=== PATIENT | male | born 1945 | race Caucasian/White ===

== ENCOUNTER 2016-10-24 08:32 | Inpatient (IN) ==
[2016-10-24] MEDS ORDERED: Aspirin 81 MG TAB.CHEW PO ONE (08:35)
[2016-10-24 09:16] LABS: Basophils % 0.4 %; Eosinophils # 0.1 K/mcL (0.0-0.6); Eosinophils % 1.1 %; Hematocrit 45.1 % (37.5-50.1); Hemoglobin 15.3 g/dL (12.9-16.9); Immature Granulocytes % 0.3 % (0-4); Lymphocytes # 1.1 K/mcL (0.6-4.6); Lymphocytes % 15.2 %; Mean Corpuscular HGB Conc 33.9 g/dL (31.6-35.5); Mean Corpuscular Hemoglobin 31.9 pg (28.0-33.3); Mean Corpuscular Volume 94.2 fL (83.0-100.0); Mean Platelet Volume 11.2 fL (9.4-12.4); Monocytes # 0.9 K/mcL (0.0-1.3); Monocytes % 12.4 %; Neutrophils # 5.3 K/mcL (1.6-8.9); Platelet Count 190 K/mcL (140-400); Red Blood Count 4.79 M/mcL (4.19-5.50); Red Cell Distribution Width 13.2 % (11.5-14.5); Segmented Neutrophils % 70.6 %
[2016-10-24] MEDS ORDERED: Nitroglycerin 0.4 MG TAB.SUBL SL PRN (09:27)
[2016-10-24 09:49] LABS: Prothrombin Time 10.4 Seconds (9.4-12.1)
[2016-10-24 09:50] LABS: BUN/Creatinine Ratio 18 (6-26); Blood Urea Nitrogen 24 mg/dL (8-26); Calcium 9.4 mg/dL (8.6-10.8); Carbon Dioxide 25 mEq/L (19-29); Chloride 104 mEq/L (98-109); Glucose 132 mg/dL (70-99); Osmolality,Calculated 294 (280-300); Potassium 3.6 mEq/L (3.5-4.5); Sodium 139 mEq/L (136-145); eGFR For African Americans > 60 (> 60); eGFR For Non-African Americans 53 (> 60)
[2016-10-24 09:52] LABS: Activated Partial Thrombo Time 29.4 Seconds (26.0-36.0)
--- NOTE | 2016-10-24 10:10 | Emergency Department Note ---
Disposition Clinical Impression: NSTEMI (non-ST elevated myocardial infarction), Elevated troponin Chest pain Qualifiers: Chest pain type: unspecified Qualified Code(s): R07.9 - Chest pain, unspecified Disposition: Admitted As Inpatient Condition: Good Time of Disposition: 11:38 Chest Pain HPI - General Stated Complaint: Chest Pain Time Seen by Provider: 10/24/16 08:34 Source: patient Mode of arrival: ambulatory Limitations: no limitations Vital Signs Reviewed: Yes Nursing Notes Reviewed: Yes - History of Present Illness HPI Narrative: Patient presents to emergency room with generalized malaise chest discomfort on Saturday left upper extremity discomfort and pain. He is waited 3 days now and symptoms have not gotten better. He was concerned as it was similar to when he had a heart attack in 2005. Patient denies any chest pain this time the shortness of breath fevers chills nausea vomiting or diarrhea. He has generalized malaise. He did have several bouts of nausea vomiting and diarrhea prior to today but has not had any at this point. Denies any trauma or injury Pt complaint: chest pain Onset (ago): day(s) Duration: now resolved Onset: during rest Pain Location: substernal, left chest Severity: mild Severity scale (1-10): 3 Quality: aching Pain Radiation: LUE Improves with: rest Worsens with: nothing Context: recent illness Associated symptoms: Reports: nausea, vomiting Treatments prior to arrival chest pain: aspirin - Related Data Previous Rx's Medication Instructions Recorded HYDROcodone/Acet 5/325 mg [Sarepta 1 tab PO Q6H #15 tablet 05/05/16 5-325 mg] Ibuprofen 800 mg PO Q8H #30 tablet 05/05/16 Allergies Allergy/AdvReac Type Severity Reaction Status Date / Time No Known Allergies Allergy Verified 05/05/16 08:23 All systems ED: reviewed and negative except as stated. Constitutional: Denies: fever, chills Cardiovascular: Reports: chest pain. Denies: palpitations, dyspnea on exertion , orthopnea Respiratory: Denies: dyspnea, wheezes Gastrointestinal: Reports: nausea, vomiting, diarrhea Genitourinary: Denies: dysuria Musculoskeletal: Denies: back pain, neck pain Neurological: Denies: headache Endocrine: Reports: fatigue Chest Pain PMH - Past Medical History Medical history: Reports: hyperlipidemia, hypertension - Social History Smoking Status: Never smoker Alcohol use: Reports: occasionally Drug use: Reports: none Physical Exam - General Limitations: no limitations - Head Head exam: atraumatic, normocephalic, normal inspection - Neck Neck exam: Present: normal inspection, full ROM, trachea midline. Absent: tenderness, meningismus - Chest Chest inspection: Present: normal inspection, symmetric chest wall rise - Respiratory Respiratory exam: Present: normal lung sounds bilaterally - Cardiovascular Cardiovascular exam: Present: regular rate, normal rhythm, normal heart sounds - Abdominal Exam Abdominal exam: Present: soft, Non-Tender, normal bowel sounds. Absent: tenderness, distention, guarding, rebound, rigidity, Cuellar's sign, pulsatile mass, hernia - Extremities Exam Extremities exam: Present: normal inspection, full ROM, normal capillary refill. Absent: tenderness, pedal edema - Back Exam Back exam: Present: normal inspection - Neurological Exam Neurological exam: Present: alert, oriented X3, CN II-XII intact, normal gait - Skin Skin exam: Present: warm, dry, intact, normal color Course Course Narrative: Patient seen and examined the time arrival. See history of present illness. 71 -year-old male presents with 3 days worth of generalized malaise nausea vomiting diarrhea. Patient did describe severe chest pain on Saturday that he thought was going to kill him. He did not come into the emergency room because he could not get to his own. Patient waited at home without any intervention. Currently denying chest pain main complaint is malaise intermittent nausea vomiting and slight dizziness. Physical exam is benign on presentation. He is chest pain-free. EKG collected shows poor amplitude progression in the limb leads but otherwise no acute signs of ST segment elevation. Is compared to previous EKG appears to be stable. Patient will be treated with ACS and possible dehydration secondary to viral syndrome. Evaluation to be completed aspirin chest x-ray and troponins. At this time. Patient otherwise is resting in the bed and does not require any other acute intervention at this point. Disposition pending this workup and treatment course. Patient will most likely require admission considering he had a previous catheterization in 2005 that was identical to his chest pain symptoms on Saturday. Patient again is chest pain -free at this time and no other acute physical exam findings - Reevaluation(s) Reevaluation #1: Patient has elevated troponin at 10.2. Heparin drip for this time. Consultation placed out to the on-call diecast machine operator Dr. vee. The presentation symptoms medical history she said the patient would most likely need admission and catheterization within the state. Patient then had an onset of chest discomfort again. Repeat EKG was collected showing similar morphology with no acute signs of ST segment elevation or myocardial infarction. Patient was given a nitroglycerin trial and the symptoms resolved completely after one nitroglycerin. Patient is otherwise stable resting comfortably in the bed appears to be in STEMI and what is an old infarct with residual elevated troponin at this time. Patient will be admitted to hospitals for definitive management. Dr. kemp and myself reviewed the patient's presentation symptoms intervention as well as the consultation cardiology. No other issues or recommendations at this time. Patient is going to be admitted to the floor for definitive management. Heparin drip started patient on his Combivent plan patient has been hemodynamically stable while here in the ED. Time: 11:35 Chest Pain - MDM Narrative Medical decision making narrative: nSTEMI, elevated troponin, generalized malaise - Medical Records Medical records reviewed: Yes I reviewed the patient's medical records. - Lab Data Lab results reviewed: Yes I reviewed the patient's lab results. - Radiology Data Radiology results reviewed: Yes I reviewed the patient's radiology results. Chest x-ray stable with no acute signs or wide mediastinum - EKG Data EKG attestation: Yes I reviewed and interpreted this EKG. EKG shows normal: sinus rhythm, axis, intervals, QRS complexes, ST-T waves Rate: normal Rhythm: NSR [place]/QRS: normal Voltage: decreased voltage throughout When compared to previous EKG there are: no significant changes Interpretation: no acute changes, unchanged when compared to prior tracing (date ) Heart Score - Score History: Moderately Suspicious EKG: Non Specific repolarisation Disturbance Age: 45-65 Risk Factors: 1-2 risk factors Troponin: Greater than 3x normal limit HEART Score Total: 6 Critical Care Time Critical Care Time: Yes Total Critical Care Time: 35 Attestation: Dependent and medical management intervention and consultation
[2016-10-24] MEDS ORDERED: *HR* Heparin 5,000 UNIT/ML VIAL IVP PRN ×2 (10:13)
[2016-10-24] MEDS ORDERED: *HR* Heparin 5,000 UNIT/ML VIAL IVP ONE (10:13)
[2016-10-24] MEDS ORDERED: Heparin 25,000 UNIT/500 ML D5W 25,000 UNIT/500 ML MLS IVC SCH (10:15)
[2016-10-24] MEDS ORDERED: Ondansetron 4 MG/2 ML VIAL IVP PRN (11:08)
[2016-10-24] MEDS ORDERED: Acetaminophen 325 MG TABLET PO PRN (11:08)
[2016-10-24] MEDS ORDERED: *HR* Morphine 2 MG/ML SYRINGE IVP PRN (11:08)
[2016-10-24] MEDS ORDERED: Naloxone 0.4 MG/ML INJ IVP PRN (11:08)
--- NOTE | 2016-10-24 12:07 | Cardiology Consult Note ---
Date of Encounter: 10/24/16 Time of Encounter: 12:04 Assessment and Plan (1) NSTEMI (non-ST elevated myocardial infarction) Current Visit: Yes Status: Acute Troponin 10.32. EKG - SB with no acute ST changes. Old inferior NC. Currently pain free. Trend troponin. Check TTE. I discussed [facility] indications, risk, benefits, and alternatives. He agrees to proceed. Continue heparin gtt. Asa, statin, bb. Creatinine 1.33, appears to be near baseline. H/o CKD. Continue to monitor. (2) CAD (coronary artery disease) Current Visit: Yes Status: Acute H/o NC and PCI in 2005. Reports recently stopping plavix. Continue asa, statin, and bb. Qualifiers: Coronary Disease-Associated Artery/Lesion type: [place] artery [place] vs. transplanted heart: [place] heart Associated angina: without angina Qualified Code(s): I25.10 - Atherosclerotic heart disease of [place] coronary artery without angina pectoris Discussion w patient/family: The assessment and plan as outlined above was discussed with the patient and/or family members who expressed understanding and agreement. All questions were answered. Thank you for involving us in the care of your patient. Please call with any questions. History of Present Illness Consult date: 10/24/16 Requesting physician: Tyrone Whyte Consult reason: NSTEMI Chief complaint: Chest pain History of present illness: Mr. Gooden is a 71 year old male with a history of NC with PCI in 2005, HTN, HLD who presented with the c/o chest pain and left arm pain last Saturday. He reports developing left forearm pain starting Saturday morning followed by midsternal pain radiating to his neck. His pain subsided that night. He states his pain was not like his previous NC. Since Saturday he c/o dizziness and fatigue with minimal activity. He presented to the ED and was found to have troponin 10.32. EKG showed no acute ST changes, SB, HR 58 BPM, old inferior NC with posterior extension. Cardiology consulted for NSTEMI. Past Med Surg Social Fam HX - Past Medical History Medical history: hyperlipidemia, hypertension Psychiatric history: no psych history - Social History Smoking Status: Never smoker Alcohol use: occasionally Drug use: none Medications and Allergies Amlodipine Besylate 2.5 mg PO DAILY 10/24/16 [History] Aspirin [Lo-Dose Aspirin EC] 162 mg PO DAILY 10/24/16 [History] Atorvastatin Calcium [Lipitor] 20 mg PO DAILY 10/24/16 [History] Cyanocobalamin (Vitamin B-12) [Vitamin B12] 1,000 mcg PO DAILY 10/24/16 [History ] Ergocalciferol (VITAMIN D2) [Vitamin D] 400 unit PO DAILY 10/24/16 [History] Multivitamin [Multi-Day Vitamins] 1 tab PO DAILY 10/24/16 [History] Omeprazole [PriLOSEC] 20 mg PO DAILY 10/24/16 [History] Oxycodone HCl [Oxaydo] 5 mg PO BID 10/24/16 [History] Allergies No Known Allergies Allergy (Verified 05/05/16 08:23) All Systems Review: A 10-system review of systems was performed and is negative for pertinent findings except as documented above in the HPI. Physical Examination Vital Signs, Last 4 Hours Temp Pulse Resp BP Pulse Ox 10/24/16 11:47 98.0 F 68 14 145/69 100 General: Conversant, No Apparent Distress HEENT: Atraumatic, Normocephaly, Mucus Membranes Moist Neck: No JVD, Normal carotid pulses Cardiac: Reg Rate and Rhythm, Normal S1 and S2, No Murmur Lungs: Normal Breath Sounds, No Wheeze, Rales, Rhonchi Neuro: Alert and responsive, No focal deficits noted Abdomen: Soft, Non-Tender Skin: No rashes noted on visualized skin Musculoskeletal: No Chest Wall Tenderness Extremities: No Clubbing, No Cyanosis, No Edema, Normal Pulses Results 10/24/16 08:39 10/24/16 08:39 - EKG Interpretation EKG results cardiology: personally reviewed (SB with no acute ST changes.) Consult Discharge Plan - Plan Referrals: NO,PCP [Primary Care Provider] -
--- NOTE | 2016-10-24 12:23 | Internal Med History&Physical ---
<Muro,India J - Last Filed: 10/24/16 12:27> Date of Encounter: 10/24/16 Time of Encounter: 12:16 Assessment and Plan (1) NSTEMI (non-ST elevated myocardial infarction) Current visit: Yes Status: Acute presented with chest and left arm pain that started 3 days prior to admission. Initial troponin 10, EKG without acute ST changes. Denies CP on exam. ASA, nitro and heparin gtt started in the ED. LHC pending. Cardiology following (2) CAD (coronary artery disease) Current visit: Yes Status: Acute s/p PCI 2005. Now with NSTEMI as noted above. Cont home ASA, statin. Heparin gtt started in ER. Cardiology following Qualifiers: Coronary Disease-Associated Artery/Lesion type: [place] artery [place] vs. transplanted heart: [place] heart Associated angina: with unstable angina Qualified Code(s): I25.110 - Atherosclerotic heart disease of [place] coronary artery with unstable angina pectoris (3) Acute kidney injury Current visit: Yes Status: Acute Cr 1.3; baseline normal to 1.2. Likely pre-renal with recent emesis and loose stool prior to admission. IV fluids, monitor repeat CMP (4) Essential (primary) hypertension Current visit: Yes Status: Acute per hx. BP variable but controlled. Cont home BP medications. Monitor BP and titrate PRN (5) Chronic back pain Current visit: Yes Status: Acute per hx. Stable with home pain medication regimen Qualifiers: Back pain location: low back pain Back pain laterality: bilateral Sciatica presence: without sciatica Qualified Code(s): M54.5 - Low back pain; G89.29 - Other chronic pain (6) DVT prophylaxis Current visit: Yes Status: Acute Heparin gtt Internal Medicine - H&P: HPI Chief complaint: chest pain Admitted From: Home Plans for Post Hospital Care: Home History of present illness: Mr. Gooden is a 71 year old male CAD, HTN and chronic pain who presented to [facility] on 10/24/2016 with complaints of chest pain. He was found to have an NSTEMI and was admitted for Cardiac evaluation. Information obtained from chart review and patient report. Patient reports acute onset severe chest and left arm pain 3 days prior to admission. Had associated N/V/D and diaphoresis. Sx's started on Saturday at 0900, he did not seek medical attention at that time. Says sx's eased, let up around 9pm on Saturday so thought he was okay. Says was feeling better but continued to be tired and weak; says he could hardly stand or walk yesterday and today so came to the ER. He has no chest pain, no SOB, says he still feels weak and tired. No further N/V/D since Saturday Past Med Surg Social Fam HX - Past Medical History Medical history: hyperlipidemia, hypertension Psychiatric history: no psych history - Past Surgical History Surgical History: angioplasty/stent - Social History Smoking Status: Never smoker Alcohol use: occasionally Drug use: none - Additional Family History Additional family history: reviewed and noncontributory Internal Medicine - H&P: Meds Amlodipine Besylate 2.5 mg PO DAILY 10/24/16 [History] Aspirin [Lo-Dose Aspirin EC] 162 mg PO DAILY 10/24/16 [History] Atorvastatin Calcium [Lipitor] 20 mg PO DAILY 10/24/16 [History] Cyanocobalamin (Vitamin B-12) [Vitamin B12] 1,000 mcg PO DAILY 10/24/16 [History ] Ergocalciferol (VITAMIN D2) [Vitamin D] 400 unit PO DAILY 10/24/16 [History] Multivitamin [Multi-Day Vitamins] 1 tab PO DAILY 10/24/16 [History] Omeprazole [PriLOSEC] 20 mg PO DAILY 10/24/16 [History] Oxycodone HCl [Oxaydo] 5 mg PO BID 10/24/16 [History] Allergies No Known Allergies Allergy (Verified 05/05/16 08:23) All Systems PM: A 10-system review of systems was performed and is negative for pertinent findings except as documented above in the HPI. - Constitutional Constitutional: lethargy, malaise, weakness, no chills, no fever(s), no night sweats - EENT Eyes: no change in vision, no discharge, no pain, no photophobia Ears: no ear discharge, no ear pain, no tinnitus Nose, mouth and throat: no dysphagia, no nasal discharge, no neck pain, no sore throat - Cardiovascular Cardiovascular ROS IM: no chest pain, no diaphoresis, no dyspnea, no lightheadedness, no palpitations, no syncope - Respiratory Respiratory: no cough, no dyspnea, no wheezing, no excessive phlegm production - Gastrointestinal Gastrointestinal: no abdominal pain, no diarrhea, no hematemesis, no hematochezia, no melena, no nausea, no vomiting - Musculoskeletal Musculoskeletal ROS IM: no numbness, no tingling - Integumentary Integumentary IM: no rash, no unusual bruising - Neurological Neurological ROS: no confusion, no convulsions, no focal weakness, no numbness, no tingling, no tremor(s) - Hematologic/Lymphatic Hematologic/Lymphatic: no easy bruising - Constitutional Vitals: Temp Pulse Resp BP Pulse Ox 98.0 F 68 14 145/69 100 10/24/16 11:47 10/24/16 11:47 10/24/16 11:47 10/24/16 11:47 10/24/16 11:47 General appearance: Present: A&O X 3, no acute distress - Head Head exam: Present: atraumatic, normocephalic - Eye Eye exam: Present: PERRL, conjuntiva pink, sclera anicteric Pupils: Present: PERRL - Neck Neck exam general surgery: Present: supple, trachea midline. Absent: lymphadenopathy - Respiratory Respiratory exam: Present: CTAB. Absent: accessory muscle use, rales, rhonchi, wheezes - Cardiovascular Cardiovascular exam: Present: RRR, +S1, +S2. Absent: diastolic murmur, gallop, rubs, systolic murmur - GI/Abdominal GI/Abdominal exam: Present: normal bowel sounds, soft, no peritoneal signs. Absent: distended, tenderness - Extremities Exam Extremities exam: Present: warm, radial pulses palpable and symetrical. Absent : calf tenderness, cyanotic, pedal edema - Neurological Exam Neurological exam: Present: CN II-XII intact, oriented X3, no focal deficits. Absent: pronater drift, facial droop, speech deficit - Skin Skin exam: Present: dry, intact Internal Med - H&P Results - Labs CBC & Chem 7: 10/24/16 08:39 10/24/16 08:39 <Abdon Miller - Last Filed: 10/24/16 13:49> Date of Encounter: 10/24/16 Internal Medicine - H&P: HPI History of present illness: Mr. Gooden is a 71 year old male All Systems PM: A 10-system review of systems was performed and is negative for pertinent findings except as documented above in the HPI. - Constitutional Vitals: Temp Pulse Resp BP Pulse Ox 98.0 F 68 14 145/69 100 10/24/16 11:47 10/24/16 11:47 10/24/16 11:47 10/24/16 11:47 10/24/16 11:47 Internal Med - H&P Results - Labs CBC & Chem 7: 10/24/16 08:39 10/24/16 08:39 - Attending Attestation I have seen and examined the patient at around 12:30 PM. I discussed with the patient with India Muro NP. I have reviewed the orders and the note. Patient is a 71-year-old male with a history of coronary artery disease, hypertension, chronic back pain and hyperlipidemia. He presents to the ED with complaints of acute onset left-sided chest pain radiating to left arm that started about 2-3 days ago. Symptoms have gradually worsened. He has associated nausea and vomiting. Patient states he was also having generalized weakness and fatigue. Rates the pain about 6 out of 10 and again describes it as chest tightness and sharp at times. No aggravating or alleviating factors. Patient denies shortness of breath denies palpitations as headache or dizziness or abdominal pain. No associated symptoms. On examination patient is awake and alert. Not in distress. Able to provide HISTORY. No family members at bedside. States his chest pain is better at this time after the nitroglycerin. Initial ED evaluation revealed elevated troponin at 10.32. EKG did not show any acute changes. Patient is being admitted for a non-ST elevation NE. Cardiology has been consulted. IV heparin to be continued. The patient will probably need a left heart catheter either later today or tomorrow. Patient has been explained about his condition and care. Understood and agreed. No unanswered questions. CODE STATUS full code. Heart rate 68, pressure 145/69, O2 sat ON ROOM AIR, HEART S1S2+, no MURMURS, LUNGS BILATERAL GOOD ENTRY NO WHEEZE OR CRACKLES. ABDOMEN SOFT NONTENDER NO MASSES OR GUARDING. EXTREMITIES ALL PULSES ARE STRONG WITH NO EDEMA.
--- NOTE | 2016-10-24 15:15 | Electrocardiograph Report ---
[address] [place], [place] [address] Test Date: 2016-10-24 Pat Name: Colton Gooden Department: 105 Room: 2A32 Gender: Research Microbiologist: MSC : 1945 Requested By: Tyrone Whyte Order Number: [id number] Reading MD: Bry Blanchard MD Measurements Intervals [place] Rate: 58 P: 42 CA: 148 QRS: -59 QRSD: 105 T: 0 QT: 396 QTc: 393 Interpretive Statements SINUS BRADYCARDIA LOW QRS VOLTAGE IN EXTREMITY LEADS LEFT ANTERIOR FASCICULAR BLOCK INFERIOR MYOCARDIAL INFARCTION PROBABLY OLD WITH POSTERIOR EXTENSION [PROMIN Electronically Signed On 10-24-2016 15:13:58 EDT by Bry Blanchard MD
--- NOTE | 2016-10-24 15:15 | Electrocardiograph Report ---
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
[2016-10-25 05:00] LABS: INR 1.1; Prothrombin Time 11.5 Seconds (9.4-12.1)
[2016-10-25 05:11] LABS: Alanine Aminotransferase 28 Units/L (0-55); Albumin 3.1 g/dL (3.5-5.0); Alkaline Phosphatase 82 Units/L (38-126); Aspartate Amino Transferase 35 Units/L (5-34); BUN/Creatinine Ratio 16 (6-26); Bilirubin,Total 0.4 mg/dL (0.2-1.2); Blood Urea Nitrogen 19 mg/dL (8-26); Calcium 8.8 mg/dL (8.6-10.8); Carbon Dioxide 24 mEq/L (19-29); Chloride 107 mEq/L (98-109); Glucose 103 mg/dL (70-99); Osmolality,Calculated 293 (280-300); Potassium 3.8 mEq/L (3.5-4.5); Sodium 140 mEq/L (136-145); Total Protein 6.1 g/dL (6.0-8.3); eGFR For African Americans > 60 (> 60); eGFR For Non-African Americans > 60 (> 60)
[2016-10-25 06:41] LABS: Basophils % 0.5 %; Eosinophils # 0.2 K/mcL (0.0-0.6); Eosinophils % 2.9 %; Hematocrit 37.7 % (37.5-50.1); Hemoglobin 12.9 g/dL (12.9-16.9); Immature Granulocytes % 0.4 % (0-4); Immature Platelets 6.4 % (1.1-6.1); Lymphocytes # 1.3 K/mcL (0.6-4.6); Lymphocytes % 23.4 %; Mean Corpuscular HGB Conc 34.2 g/dL (31.6-35.5); Mean Corpuscular Hemoglobin 31.8 pg (28.0-33.3); Mean Corpuscular Volume 92.9 fL (83.0-100.0); Mean Platelet Volume 11.5 fL (9.4-12.4); Monocytes # 0.6 K/mcL (0.0-1.3); Monocytes % 11.2 %; Platelet Count 147 K/mcL (140-400); Red Blood Count 4.06 M/mcL (4.19-5.50); Red Cell Distribution Width 13.2 % (11.5-14.5); Segmented Neutrophils % 61.6 %
[2016-10-25 06:50] LABS: Neutrophils # 3.5 K/mcL (1.6-8.9)
[2016-10-25] MEDS ORDERED: Verapamil 5 MG/2 ML VIAL ONE (07:36)
[2016-10-25] MEDS ORDERED: 0.9 % Sodium Chloride 1,000 ML ONE ×2 (07:36→07:53)
[2016-10-25] MEDS ORDERED: Heparin 1,000 UNITS/500 mL NS 500 ML ONE (07:37)
[2016-10-25] MEDS ORDERED: Nitroglycerin 1,000 MCG/10 ML VIAL IV ONE ×2 (07:37→09:01)
[2016-10-25] MEDS ORDERED: *HR* Heparin 10,000 UNIT/10 ML VIAL ONE (07:37)
[2016-10-25] MEDS ORDERED: *HR* Midazolam HCl 2 MG/2 ML VIAL ONE (07:52)
[2016-10-25] MEDS ORDERED: *HR* FentaNYL (PF) 100 MCG/2 ML VIAL ONE (07:52)
[2016-10-25 08:14] LABS: Platelet Estimate Normal (Normal)
--- NOTE | 2016-10-25 08:19 | Pre-Sedation Evaluation ---
Pre-sedation evaluation - Pre-sedation checklist Date of procedure: 10/25/16 Procedure: [facility] Recent Vitals: Last Vital Signs Temp 98.3 F 10/25/16 06:56 Pulse 57 10/25/16 06:56 Resp 18 10/25/16 06:56 BP 118/75 10/25/16 06:56 Pulse Ox 96 10/25/16 06:56 H&P (including ROS) documented in medical record: Yes Previous reaction to sedatives/anesthetics: No Dietary Status: NPO after Midnight Dentition: dentures removed ASA Classification *see protocol: CLASS II-Mild systemic disease Plan of Care: Pt appropriate candidate for procedure/moderate/conscious sedation , Risks/benefits of procedure/sedation discussed w/ patient/family
[2016-10-25] MEDS ORDERED: Tirofiban 5 MG/100ML 5 MG/100 ML BAG IV ONE (08:32)
[2016-10-25] MEDS ORDERED: *HR* Ticagrelor 90 MG TABLET ONE (08:49)
[2016-10-25] MEDS ORDERED: Famotidine 20 MG TABLET PO SCH (09:00)
[2016-10-25] MEDS ORDERED: Aspirin Enteric Coated 81 MG Tablet PO SCH ×2 (09:00→09:50)
--- NOTE | 2016-10-25 09:26 | Invasive Diagnostic Lab Proc ---
Name: Colton Gooden Date of Study: 10/25/2016 Date: 1945 Ht: 70.1in Medical Record#: [id number] Age: 71 Wt: 165.35lb Gender: Male BSA: 1.93 Order #: [id number] BMI: 23.67 Physicians Procedure Physician: Bry Blanchard MD, [facility] Referring MD: Referring MD: Staff Name Position Time In Esperanza Orr RN Manual Plate Filler 08:11 AM Felicitas Ugalde RT (R) Monitor 08:11 AM James Gallagher RT (R) Scrub 08:11 AM Cammy Bentley RT (R) Monitor 08:11 AM Paulina Paredes RN Monitor 09:12 AM Indications Indication Non-Stemi Procedures Performed Procedure L HRT ARTERY/VENTRICLE ANGIO PRQ CARD ADELITA STENT W/ANGIO 1 VSL IVUS CORONARY 1ST VESSEL S\\T\\I IVUS CORONARY EA AD'L VES S\\T\\I Pre-Procedure Checklist Informed consent is complete signed and on chart. H\\T\\P is on chart. ID band is on and ID verified with patient. Patient NPO for procedure The procedure was described for the patient and questions were answered. Blood Pressure: 135/70 ECG is on chart. Rhythm: NSR Plan of Care Patient will tolerate the procedure without complications. Adequate level of comfort will be maintained. Hemodynamics will remain stable Patient will recover from procedure without complications. Respiratory function will be maintained. Cardiac rhythm will remain stable. Patient temperature will be maintained. Patient and/or family have verbalized understanding of the procedure. Patient Education Chief Complaint/Reason for Test: Cardiac Cath Developmental Category: Geriatric (65+ years) Developmentally Appropriate for Age: Yes Learning Barriers: None Education Needs: Procedure Education Method: Verbal Information Taught: Cardiac Cath Educational Evaluation: Able to repeat information Intravenous Access Time IV Size Location DC'd Fluid/Drip Rate Units RN 08:14 AM 18g 1 1/4" Patent On Arrival Rt Antecubital 0.9NaCl 25 ml/hr Esperanza Orr RN Allergies No Known Allergies Vital Signs Time BP (mmHg) HR (bpm) O2 Sat. RR (bpm) LOC 08:12 AM 135 / 70 62 100 % 18 4 = Oriented but drowsy 08:26 AM 116 / 71 71 99 % 19 08:29 AM 119 / 69 64 99 % 19 08:32 AM 133 / 76 61 100 % 24 08:35 AM 131 / 79 62 100 % 18 08:38 AM 128 / 76 61 100 % 17 08:41 AM 139 / 78 62 100 % 13 08:44 AM 141 / 75 62 100 % 16 08:47 AM 144 / 82 62 100 % 16 08:50 AM 129 / 77 59 100 % 20 08:54 AM 125 / 73 63 100 % 26 08:09 AM 147 / 76 57 100 % 08:11 AM 135 / 70 78 100 % 12 08:14 AM 124 / 70 60 100 % 20 08:17 AM 116 / 69 65 100 % 34 08:20 AM 123 / 73 54 100 % 16 08:23 AM 105 / 60 69 100 % 12 08:56 AM 112 / 70 68 100 % 20 08:59 AM 116 / 73 65 100 % 15 09:02 AM 113 / 68 66 100 % 16 09:05 AM 119 / 72 62 100 % 17 09:08 AM 117 / 74 62 100 % 20 Procedural Medications Time Medication Dose Units Method Given By 08:11 AM Oxygen 2 L/min nasal cannula Esperanza Orr RN 08:11 AM Versed 2 mg Intravenous Esperanza Orr RN 08:11 AM Fentanyl 50 mcg Intravenous Esperanza Orr RN 08:22 AM Lidocaine 2% 0.5 ml Subcutaneous Bry Blanchard MD, FACC 08:23 AM Nitroglycerin 200 mcg Verapamil 2.5 mg Intraarterial Bry Blanchard MD, FACC 08:33 AM Aggrastat Bolus: 37.5 ml Intravenous Esperanza Orr RN 08:33 AM Aggrastat 5mg/100ml 6.5 ml Intravenous Esperanza Orr RN 08:35 AM Heparin 3000 units Intravenous Esperanza Orr RN 08:49 AM Brilinta 180 mg Orally Esperanza Orr RN 08:53 AM Nitroglycerin 200 mcg Intracoronary Bry Blanchard MD 09:00 AM Nitroglycerin 200 mcg Intracoronary Bry Blanchard MD ASA Classification: CLASS II- Mild systemic disease (i.e. well-controlled diabetes, hypertension, asthma, cigarette smoking) Fredi Score Preprocedure Postprocedure Activity 2- Moves 4 extremities sustained head lift Activity 2- Moves 4 extremities sustained head lift Circulation 2- SBP +/= 20 points of pre-anesthetic level Circulation 2- SBP +/= 20 points of pre-anesthetic level Consciousness 2- Awake and alert oriented x 3 Consciousness 2- Awake and alert oriented x 3 O2 Saturation 2- Able to maintain O2 satruation of 92% on room air O2 Saturation 2- Able to maintain O2 satruation of 92% on room air Respiratory 2- Able to deep breathe and cough well Respiratory 2- Able to deep breathe and cough well Total Score 10 Total Score 10 Contrast Agent: Isovue Diagnostic Contrast: 169 ml Total Contrast: 169 ml Fluoro Dose: 903 mGy Activated Clotting Time Time Seconds to Clot 08:34 AM 131 Procedure Log Time Note Enter By 08:06 AM Pt arrived to label drier 2 at 08:06 tsites 08:06 AM Physician arrived 08:06 [email or web address] 08:06 AM Meet and greet completed tsites 08:06 AM Sign in performed according to hospital policy. tsites 08:06 AM Procedure start 08:06 tsites 08:06 AM CathStat 08:08 AM Vitals capture started with the following parameters, Patient=Adult, Interval=3 min, Initial Ywbcsdtr=788 mmHg, Deflation Rate=5 mmHg, Cuff placed on Right Arm 08:09 AM HR=57 bpm, BHGA=102/76 mmhg, KnA6=036.0 %, Comment=SB 08:10 AM Recorded ECG: HR=55 Condition=Condition 1 08:11 AM Esperanza Orr RN Position: Manual Plate Filler Time in: 08:11 [email or web address] 08:11 AM Felicitas Ugalde RT (R) Position: Monitor Time in: 08:11 tsites 08:11 AM James Gallagher RT (R) Position: Scrub Time in: 08:11 tsites 08:11 AM Cammy Bentley RT (R) Position: Monitor Time in: 08:11 [facility] 08:11 AM Patient charges- Angio tray pack, Navilyst 3mm J, Pulse Oximetry and ACIST tubing and transducer [email or web address] 08:11 AM Time: 08:11 Oxygen on at 2 L/min per nasal cannula by Esperanza Orr RN [facility] 08:11 AM Time: 08:11 Versed 2 mg Intravenous Given by Esperanza Orr RN [email or web address] 08:11 AM HR=78 bpm, CDPC=299/70 mmhg, WhJ2=206.0 %, Resp=12 B/min, Comment=SR 08:12 AM Time: 08:11 Fentanyl 50 mcg Intravenous Given by Esperanza Orr RN [facility] 08:12 AM Time: 08:12 Patient comfortable and pain free: Yes tsites 08:12 AM Time: 08:12LOC: 4 = Oriented but drowsy tsites 08:14 AM HR=60 bpm, BAOE=318/70 mmhg, JwD8=713.0 %, Resp=20 B/min, Comment=SR 08:17 AM HR=65 bpm, TRFX=073/69 mmhg, NrF3=091.0 %, Resp=34 B/min, Comment=SR 08:18 AM Pressure channel 1 zero failed. 08:18 AM Pressure channel 1 zeroed. 08:18 AM Pressure channel 1 zeroed. 08:20 AM HR=54 bpm, LNMZ=704/73 mmhg, SeJ6=645.0 %, Resp=16 B/min, Comment=SR 08:22 AM Time out performed according to hospital policy [email or web address] 08:22 AM Time: 08:22 0.5 ml Lidocaine 2% to right radial Subcutaneous Given by Bry Blanchard MD, [facility] [email or web address] 08:22 AM Access obtained by percutaneous puncture. 6Fr 10cm Terumo Glidesheath sheath placed in right Radial artery. [id number] [email or web address] 08:23 AM Time: 08:23 Patient given , 200 mcg Nitroglycerin, and 2.5 mg Verapamil Intraarterial by Bry Blanchard MD, [facility] [email or web address] 08:23 AM 0.035 260cm Navilyst 3mmJ wire [id number] [email or web address] 08:23 AM HR=69 bpm, TGBD=139/60 mmhg, OcV9=076.0 %, Resp=12 B/min, Comment=SR 08:23 AM 5Fr TIG catheter inserted over the wire [facility] [email or web address] 08:24 AM Catheter selectively placed in left ventricle [email or web address] 08:24 AM Pressure channel 1 zeroed. 08:25 AM Bolus angiogram of left Ventricle complete: 10 ml/sec for a total of 30 mls [email or web address] 08:25 AM Recorded Pressure: LV, HR=75, Condition=Condition 1 (Left Ventricle) LV 90/1/5 08:25 AM Recorded Pressure: LV, Ao, HR=88, Condition=Condition 1 (Left Ventricle) LV 71/6/14, (Aorta) Ao 89/59/71 08:26 AM RCA angiography performed in multiple views. [email or web address] 08:26 AM Recorded Pressure: Ao, HR=76, Condition=Condition 1 (Aorta) Ao 96/79/87 08:26 AM HR=71 bpm, WOWN=500/71 mmhg, SpO2=99.0 %, Resp=19 B/min, Comment=SR 08:27 AM Catheter removed [email or web address] 08:27 AM 5Fr FL 3.5 catheter inserted over the wire [id number] [email or web address] 08:28 AM LCA angiography performed in multiple views. [email or web address] 08:29 AM Recorded Pressure: Ao, HR=60, Condition=Condition 1 (Aorta) Ao 108/76/91 08:29 AM HR=64 bpm, DGNP=805/69 mmhg, SpO2=99.0 %, Resp=19 B/min, Comment=SR 08:30 AM Coronary Dominance: Left [email or web address] 08:30 AM Lesion found in Proximal LAD. Pre Stenosis: 70 Pre TOLU Flow: 3: Complete and Brisk Flow/Perfusion [email or web address] 08:30 AM Lesion found in Mid LAD. Pre Stenosis: 50 Pre TOLU Flow: [email or web address] 08:31 AM 6Fr RBL 3.5 Convey guide catheter was used to cannulate the PCI vessel successfully. reused? No [email or web address] 08:31 AM .014 [place] 190cm guide wire across target lesion- successful. reused? No [email or web address] 08:31 AM Inflation device was opened. [email or web address] 08:32 AM HR=61 bpm, LUGC=285/76 mmhg, UvZ5=010.0 %, Resp=24 B/min, Comment=SR 08:33 AM Time: 08:33 Aggrastat Bolus: 37.5 ml Intravenous Given by Esperanza Orr RN Sprague pump [email or web address] 08:33 AM Time: 08:33 Aggrastat 5mg/100ml 6.5 ml Intravenous Given by Esperanza Orr RN Sprague pump [email or web address] 08:33 AM Recorded Pressure: Ao, HR=65, Condition=Condition 1 (Aorta) Ao 130/81/102 08:34 AM At 08:34 the ACT was 131 seconds. [email or web address] 08:35 AM Time: 08:35 Heparin 3000 units Intravenous Given by Esperanza Orr RN [email or web address] 08:35 AM HR=62 bpm, UUWV=844/79 mmhg, JpI2=750.0 %, Resp=18 B/min, Comment=SR 08:36 AM .014 [place] 190cm guide wire across target lesion- successful. reused? No [email or web address] 08:38 AM 3.5mm x 20mm Synergy drug-eluting stent across target lesion- successful Lot #[id number] [email or web address] 08:38 AM HR=61 bpm, NTTQ=966/76 mmhg, FzH7=145.0 %, Resp=17 B/min, Comment=SR 08:41 AM HR=62 bpm, WIFC=085/78 mmhg, RpU2=202.0 %, Resp=13 B/min, Comment=SR 08:43 AM Stent deployed @ 12 richar for 29 seconds [email or web address] 08:43 AM Stent delivery system removed intact. [email or web address] 08:44 AM HR=62 bpm, DNPJ=873/75 mmhg, VwA3=448.0 %, Resp=16 B/min, Comment=SR 08:45 AM 3.5 mm x 15mm NC Trek Rx balloon across target lesion- successful. reused? No [email or web address] 08:46 AM Balloon inflated @ 12 richar for 8 seconds [email or web address] 08:47 AM Balloon inflated @ 20 richar for 34 seconds [email or web address] 08:47 AM HR=62 bpm, PCKD=605/82 mmhg, MtH2=003.0 %, Resp=16 B/min, Comment=SR 08:48 AM Balloon catheter removed intact. [email or web address] 08:48 AM 3.75 mm x 12mm NC Trek Rx balloon across target lesion- successful. reused? No [email or web address] 08:49 AM Time: 08:49 Brilinta 180 mg Orally Given by Esperanza Orr RN [email or web address] 08:50 AM Recorded Pressure: Ao, HR=62, Condition=Condition 1 (Aorta) Ao 126/74/97 08:50 AM Balloon inflated @ 12 richar for 14 seconds [email or web address] 08:50 AM HR=59 bpm, DOAJ=167/77 mmhg, VxY5=127.0 %, Resp=20 B/min, Comment=SR 08:51 AM Balloon inflated @ 16 richar for 20 seconds [email or web address] 08:52 AM Balloon inflated @ 18 richar for 26 seconds [email or web address] 08:52 AM Balloon inflated @ 22 richar for 20 seconds [email or web address] 08:54 AM Time: 08:53 Nitroglycerin 200 mcg Intracoronary Given by Bry Blanchard MD [email or web address] 08:54 AM HR=63 bpm, HOIP=609/73 mmhg, LyJ5=428.0 %, Resp=26 B/min, Comment=SR 08:56 AM HR=68 bpm, MBOY=789/70 mmhg, OkU7=529.0 %, Resp=20 B/min, Comment=SR 08:57 AM Balloon catheter removed intact. [email or web address] 08:58 AM 3.6Fr/40mHz [employer] Opti Cross IVUS catheter was inserted into guide catheter and advanced to lesion. IVUS study was done and the catheter was removed. [email or web address] 08:59 AM HR=65 bpm, NDVU=697/73 mmhg, NzV5=992.0 %, Resp=15 B/min, Comment=SR 09:00 AM Time: 09:00 Nitroglycerin 200 mcg Intracoronary Given by Bry Blanchard MD [email or web address] 09:02 AM HR=66 bpm, NBPL=158/68 mmhg, BbP1=725.0 %, Resp=16 B/min, Comment=SR 09:03 AM IVUS catheter removed intact [email or web address] 09:04 AM 3.6Fr/40mHz [employer] Opti Cross IVUS catheter was inserted into guide catheter and advanced to lesion. IVUS study was done and the catheter was removed. [email or web address] 09:05 AM HR=62 bpm, KKRI=986/72 mmhg, JvX1=517.0 %, Resp=17 B/min, Comment=SR 09:06 AM IVUS catheter removed intact [email or web address] 09:08 AM Guide wires removed intact. [email or web address] 09:08 AM Guide catheter removed intact. [email or web address] 09:08 AM HR=62 bpm, BDFQ=351/74 mmhg, NoS1=886.0 %, Resp=20 B/min, Comment=SR 09:09 AM Procedure completed at 09:09 [email or web address] 09:10 AM Sign out completed: Radiation Dose 903.08 mGy Fluoro Time: 11.0 Isovue 370 - 200ml contrast 169 ml given by Bry Blanchard MD, [facility]. Complications: NoneCardiac Rehab Consult needed: YesConfirmed administered medications: Yes [email or web address] 09:10 AM Isovue 370 - 200ml,1 Bottle(s) used. [email or web address] 09:10 AM 11 ml air in Vasc Band. [email or web address] 09:10 AM Arterial sheath pulled, Vasc Band closure device used and was Successful S/N. [email or web address] 09:10 AM Post ECG NSR [email or web address] 09:10 AM Post Blood Pressure 117/74 [email or web address] 09:11 AM 09:10 Post Pulses Rt Radial 1+ [email or web address] 09:11 AM Information taught Cardiac Cath, PCI, IVUS/Flowire, and Vasc Band [email or web address] 09:11 AM Education needs Procedure, Plan of Care, and Disease Process [email or web address] 09:11 AM Learning barriers :None [email or web address] 09:11 AM Education Methods Verbal [email or web address] 09:11 AM Education evaluation Able to repeat information [email or web address] 09:12 AM Paulina Paredes RN Position: Monitor Time in: 09:12 [email or web address] 09:12 AM Site status No bleeding/hematoma - Rt Wrist as reported by James Gallagher RT (R) at 09:12 [email or web address] 09:13 AM Delay to floor No [email or web address] 09:13 AM Family placed in not available. [email or web address] 09:13 AM Complications: None [email or web address] 09:13 AM Fluoro Time: 11 [email or web address] 09:13 AM Isovue 370 - 200ml contrast 169 ml given by Bry Blanchard MD, [facility]. [email or web address] 09:13 AM Radiation Dose 903.08 mGy [email or web address] 09:18 AM Report given to Quinn MARX Pt taken to 2A Room #32. 09:18 [email or web address] 09:18 AM Patient out of room: 09:18 [email or web address] Complications Complication None None Hemodynamics Pressures Site Systolic/A Wave Diastolic/V Wave Mean LV 90 1 5 LV 71 6 14 AO 89 59 71 AO 96 79 87 AO 108 76 91 AO 130 81 102 AO 126 74 97 Post Procedure Information Blood Pressure: 117/74 mmHg Rhythm: NSR Post procedural instructions were given Closure Device Time Device Success/Fail 10/25/2016 9:10:00 AM Mechanical Compression Site Checks Time Location Status Staff Sheath In? Note 09:12 AM Rt Wrist No bleeding/hematoma James Gallagher RT (R) Pulses Time Site Pre-Procedure Post-Procedure Note Bilateral DP \\T\\ PT 2+ 9:10:00 AM Rt Radial 1+ Updated by Felicitas Ugalde, RT(R) on 10/25/2016 9:19:15 AM electronically signed on 10/25/2016 9:19:45 AM with status of Final
[2016-10-25] MEDS ORDERED: Tirofiban 12.5 MG/250ML 12.5 MG/250 ML BAG IVC SCH (09:30)
[2016-10-25] MEDS: Cholecalciferol (D-3) 1,000 UNIT TABLET PO SCH (09:52)
[2016-10-25] MEDS: Cyanocobalamin (B-12) 1,000 MCG TABLET PO SCH (09:52)
[2016-10-25] MEDS: Multivit/Ca/Min/Fe/FA 1 TAB TABLET PO SCH (09:53)
--- NOTE | 2016-10-25 10:34 | Internal Med Progress Note ---
<Wally Fall - Last Filed: 10/25/16 16:22> Date of Encounter: 10/25/16 Time of Encounter: 10:33 - Assessment and plan (1) NSTEMI (non-ST elevated myocardial infarction) Current Visit: Yes Status: Acute Assessment and plan: - Cardiology following, appreciate recommendations - Patient underwent left heart catheterization this morning, with placement of 1 drug-eluting stent - ROSIE performed this afternoon. Results pending -Patient receiving aspirin, atorvastatin, ticagrelor - We will continue to monitor. Patient stable and symptomatic. (2) CAD (coronary artery disease) Current Visit: Yes Status: Acute Assessment and plan: - Patient has known history of coronary artery disease, with a history of MA in 2005 with stent placement - Home medications include aspirin 162 mg, reports recently stopping his Plavix per ED note - resumed atorvastatin, ASA and started ticagrelor. - Cardiology following Qualifiers: Coronary Disease-Associated Artery/Lesion type: [place] artery [place] vs. transplanted heart: [place] heart Associated angina: with unstable angina Qualified Code(s): I25.110 - Atherosclerotic heart disease of [place] coronary artery with unstable angina pectoris (3) Acute kidney injury Current Visit: Yes Status: Acute Assessment and plan: Patient presented with BUN/creatinine of 19/1.17 - Likely secondary to decreased renal perfusion and IV dye from [facility]. - We will monitor (4) Essential (primary) hypertension Current Visit: Yes Status: Acute Assessment and plan: - Continue home verapamil - Controlled at 118/75 (5) DVT prophylaxis Current Visit: Yes Status: Acute Assessment and plan: - Patient started on heparin drip for NSTEMI - Heparin held after [facility] this morning. - Patient on dual antiplatelet therapy - Time Spent With Patient Greater than 35 minutes - Subjective Interval history: Patient was seen and examined at bedside this morning. He has recently returned from left heart catheterization, which he reports that placed one drug- eluting stent. He states he currently feels much better, with no symptoms of chest pain, shortness of breath, diaphoresis, nausea, vomiting. He states he does continue to be fatigued, but it has improved since onset of symptoms this weekend. - Constitutional Vitals: Temp Pulse Resp BP Pulse Ox 98.3 F 57 18 118/75 96 10/25/16 06:56 10/25/16 06:56 10/25/16 06:56 10/25/16 06:56 10/25/16 06:56 General appearance: Present: A&O X 3, no acute distress Exam: Gen.: Vitals noted. No acute distress. AAOx3. Mildly lethargic HEENT: PERR, oropharynx clear with moist mucous membranes, Normocephalic, atraumatic Neck: Supple. No adenopathy. Cardiac: RRR, no murmur, +S1/S2 Pulmonary: CTA bilaterally, no wheezes, rales or rhonchi, equal chest expansion Abdomen: soft, nontender, BS noted, no guarding Back: Nontender throughout. Extremities: no BLE edema, nontender calf, no cyanosis or clubbing Neuro: A&Ox3, moves all extremities, no focal deficits Psych: Appropriate mood and behavior Internal Medicine: Result - Labs CBC & Chem 7: 10/25/16 06:19 10/25/16 04:15 Labs: Short CBC 10/25/16 Range/Units 06:19 WBC 5.6 (4.3-11.1) K/mcL Hgb 12.9 D (12.9-16.9) g/dL Hct 37.7 (37.5-50.1) % Plt Count 147 (140-400) K/mcL Neutrophils # 3.5 (1.6-8.9) K/mcL BMP 10/25/16 04:15 Sodium 140 Potassium 3.8 Chloride 107 Carbon Dioxide 24 BUN 19 Creatinine 1.17 Glucose 103 H Calcium 8.8 Cardiac Enzymes 10/24/16 10/24/16 10/25/16 Range/Units 13:47 21:09 04:15 Troponin I 8.98 H* 9.70 H* 9.38 H* (0-0.03) ng/mL Liver Function 10/25/16 Range/Units 04:15 Total Bilirubin 0.4 (0.2-1.2) mg/dL AST 35 H (5-34) Units/L ALT 28 (0-55) Units/L Alkaline Phosphatase 82 (38-126) Units/L Albumin 3.1 L (3.5-5.0) g/dL - ABG Interpretation ABG results: PT/INR, D-dimer PT 11.5 Seconds (9.4-12.1) 10/25/16 04:15 Consult Discharge Plan - Plan Referrals: NO,PCP [Primary Care Provider] - <Ze Grover - Last Filed: 10/25/16 17:56> Date of Encounter: 10/25/16 - Assessment and plan (1) NSTEMI (non-ST elevated myocardial infarction) Current Visit: Yes Status: Acute (2) CAD (coronary artery disease) Current Visit: Yes Status: Acute Qualifiers: Coronary Disease-Associated Artery/Lesion type: [place] artery [place] vs. transplanted heart: [place] heart Associated angina: with unstable angina Qualified Code(s): I25.110 - Atherosclerotic heart disease of [place] coronary artery with unstable angina pectoris (3) Essential (primary) hypertension Current Visit: Yes Status: Acute (4) Chronic back pain Current Visit: Yes Status: Chronic Qualifiers: Back pain location: low back pain Back pain laterality: bilateral Sciatica presence: without sciatica Qualified Code(s): M54.5 - Low back pain; G89.29 - Other chronic pain (5) Acute kidney injury Current Visit: Yes Status: Acute - Constitutional Vitals: Temp Pulse Resp BP Pulse Ox 97.9 F 56 18 96/45 98 10/25/16 15:48 10/25/16 15:48 10/25/16 15:48 10/25/16 15:48 10/25/16 15:48 Internal Medicine: Result - Labs CBC & Chem 7: 10/25/16 06:19 10/25/16 04:15 Labs: Short CBC 10/25/16 Range/Units 06:19 WBC 5.6 (4.3-11.1) K/mcL Hgb 12.9 D (12.9-16.9) g/dL Hct 37.7 (37.5-50.1) % Plt Count 147 (140-400) K/mcL Neutrophils # 3.5 (1.6-8.9) K/mcL BMP 10/25/16 04:15 Sodium 140 Potassium 3.8 Chloride 107 Carbon Dioxide 24 BUN 19 Creatinine 1.17 Glucose 103 H Calcium 8.8 Cardiac Enzymes 10/24/16 10/25/16 Range/Units 21:09 04:15 Troponin I 9.70 H* 9.38 H* (0-0.03) ng/mL Liver Function 10/25/16 Range/Units 04:15 Total Bilirubin 0.4 (0.2-1.2) mg/dL AST 35 H (5-34) Units/L ALT 28 (0-55) Units/L Alkaline Phosphatase 82 (38-126) Units/L Albumin 3.1 L (3.5-5.0) g/dL - ABG Interpretation ABG results: PT/INR, D-dimer PT 11.5 Seconds (9.4-12.1) 10/25/16 04:15 - Attending Attestation I examined this patient and my medical decision-making was reviewed with the Resident Physician on 10/25/16. I agree with the documented findings, disposition and treatment plan as described except to the extent set forth below. Mr. Gooden is currently admitted for acute NSTEMI. He remains moderate to high risk due to potential for worsening cardiac status. Mr. Gooden is s/p cath and stent placement. Denies issues now. No fever or chills. No GI symptoms Exam Alert. Comfortable Heart reg No wheeze I/P 1. NSTEMI 2. CAD Further diagnoses and plan as above.
[2016-10-25] MEDS: *HR* Ticagrelor 90 MG TABLET PO SCH (21:51)
[2016-10-26 05:09] LABS: Hematocrit 37.1 % (37.5-50.1); Hemoglobin 12.3 g/dL (12.9-16.9); Mean Corpuscular HGB Conc 33.2 g/dL (31.6-35.5); Mean Corpuscular Hemoglobin 30.4 pg (28.0-33.3); Mean Corpuscular Volume 91.6 fL (83.0-100.0); Mean Platelet Volume 10.7 fL (9.4-12.4); Platelet Count 150 K/mcL (140-400); Red Blood Count 4.05 M/mcL (4.19-5.50); Red Cell Distribution Width 13.1 % (11.5-14.5)
[2016-10-26 05:22] LABS: BUN/Creatinine Ratio 14 (6-26); Blood Urea Nitrogen 16 mg/dL (8-26); Calcium 8.9 mg/dL (8.6-10.8); Carbon Dioxide 30 mEq/L (19-29); Chloride 111 mEq/L (98-109); Glucose 101 mg/dL (70-99); Osmolality,Calculated 297 (280-300); Sodium 143 mEq/L (136-145); eGFR For African Americans > 60 (> 60); eGFR For Non-African Americans > 60 (> 60)
--- NOTE | 2016-10-26 06:37 | Invasive Diagnostic Lab ---
Name: Colton Gooden Date of Study: 10/25/2016 Date: 1945 Ht: 178.0 cm /70.1 in Medical Record#: [id number] Age: 71 Wt: 75. kg / 165.35 lb Account/Order#: [id number] Gender: Male BSA: 1.93 Order #: [id number] Fluoro Dose: 903 mGy BMI: 23.67 Procedure Physician: Bry Blanchard MD, [facility] Referring MD: Referring MD: Procedures Performed: LEFT HEART CATH Stent w/ PTCA Single Major Vessel IVUS CORONARY INITIAL VESSEL IVUS CORONARY EA ADD'L VESSEL Indications: Non-Stemi Impressions: There is severe one vessel coronary artery disease. The left ventricle is normal and has normal contractility EF 60% Patient had successful PTCA/Drug-Eluting Stent placement in the proximal LAD. Recommendations: Optimal medical therapy of patient's disease. Aggressive risk factor modification. History/Risk Factors: CP NSTEMI Hypertension Dyslipidemia Previous PCI Procedure Access obtained in the right Radial artery by percutaneous puncture A intravascular ultrasound catheter was fully inserted through the sheath into the distal part of the vessel. Image recording was initiated in LAD and Circumflex and coronary ultrasound images were acquired during slow pullback. Patient had successful PTCA/Drug-Eluting Stent placement in the proximal LAD. Complications: None, None Contrast: Isovue 169ml Closure Device: Mechanical Compression Hemodynamics: Pressures Site Systolic/ A Wave Diastolic/ V Wave End Diastolic/ Mean HR LV 90 1 5 75 LV 71 6 14 91 AO 89 59 71 74 AO 96 79 87 76 AO 108 76 91 60 AO 130 81 102 65 AO 126 74 97 62 LV Ventriculography Ejection Method: LV Gram Ejection Fraction: 60% Wall Motion: ESCOB[place]O Anterobasal Normal Anterolateral Normal Apical: Normal Inferoapical Normal Inferobasal Normal Coronary Dominance: Left Lesion Findings/Interventions * Left Main Coronary Artery The LMCA is angiographically free of disease. * Left Anterior Descending There is a 20 mm long, 70% stenosis in the Proximal LAD. The lesion has a TOLU flow of 3 and has no thrombus present. An intervention was performed on the Proximal LAD with a final stenosis of 0%. There were no lesion complications. The final TOLU flow was 3. There is a 40% stenosis in the Mid LAD. IVUS of the proximal LAD stent shows good apposition to vessel wall and stent terminates at the ostium. * Circumflex There is a 40-50% stenosis in the ostial-Proximal Circumflex. There is no significant disease in the left PDA. LAD stent terminates at LAD ostium. * Right Coronary Artery - nondominant There is a 60-70% stenosis in the ostial-Proximal RCA. Interventional Device(s) Vessel Segment Type Name Diameter (mm) Length (mm) Proximal LAD Drug Eluting Stent Synergy 3.5 20 Proximal LAD Balloon NC Trek Rx 3.5 15 Proximal LAD Balloon NC Trek Rx 3.75 12 Updated by RT Ulises(R) on 10/25/2016 9:18:39 AM Bry Blanchard MD, FACC electronically signed on 10/26/2016 6:32:53 AM with status of Final
[2016-10-26] MEDS: Cyanocobalamin (B-12) 1,000 MCG TABLET PO SCH (07:49)
[2016-10-26] MEDS: Multivit/Ca/Min/Fe/FA 1 TAB TABLET PO SCH (07:49)
[2016-10-26] MEDS: Cholecalciferol (D-3) 1,000 UNIT TABLET PO SCH (07:50)
[2016-10-26] MEDS: *HR* Ticagrelor 90 MG TABLET PO SCH (07:50)
--- NOTE | 2016-10-26 08:59 | Discharge Summary ---
<Wally Fall - Last Filed: 10/26/16 14:17> Date of Encounter: 10/26/16 Time of Encounter: 08:55 - Discharge Diagnosis (1) NSTEMI (non-ST elevated myocardial infarction) Priority: Primary Status: Acute (2) CAD (coronary artery disease) Priority: Secondary Status: Acute Qualifiers: Coronary Disease-Associated Artery/Lesion type: [place] artery [place] vs. transplanted heart: [place] heart Associated angina: with unstable angina Qualified Code(s): I25.110 - Atherosclerotic heart disease of [place] coronary artery with unstable angina pectoris (3) Acute kidney injury Priority: Primary Status: Acute (4) Essential (primary) hypertension Priority: Secondary Status: Acute (5) DVT prophylaxis Priority: Primary Status: Acute - Discharge Medications Prescriptions: Atorvastatin Calcium [Lipitor] 40 mg PO DAILY #30 tablet Ticagrelor [Brilinta] 90 mg PO BID #60 tablet Home Medications: Amlodipine Besylate 2.5 mg PO DAILY 10/24/16 [History] Aspirin [Lo-Dose Aspirin EC] 162 mg PO DAILY 10/24/16 [History] Cyanocobalamin (Vitamin B-12) [Vitamin B12] 1,000 mcg PO DAILY 10/24/16 [History ] Ergocalciferol (VITAMIN D2) [Vitamin D] 400 unit PO DAILY 10/24/16 [History] Multivitamin [Multi-Day Vitamins] 1 tab PO DAILY 10/24/16 [History] Omeprazole [PriLOSEC] 20 mg PO DAILY 10/24/16 [History] Oxycodone HCl [Oxaydo] 5 mg PO BID 10/24/16 [History] Atorvastatin Calcium [Lipitor] 40 mg PO DAILY #30 tablet 10/26/16 [Rx] Ticagrelor [Brilinta] 90 mg PO BID #60 tablet 10/26/16 [Rx] Allergies/Adverse Reactions: Allergies No Known Allergies Allergy (Verified 05/05/16 08:23) Date of admission: 10/24/16 13:03 Primary care physician: PCP NO Consults: 10/25/16 07:57 Consult to Cardiac Rehabilitation-Phase1 [CONS] Routine Comment: Reason for Consult: NSTEMI Call Completed: Yes Discharging clinician: Wally Fall Anticipated date of discharge: 10/26/16 - Patient Status Disposition: Home, Self-Care Condition: Good Functional capacity at discharge: independent ambulation Overall status at discharge: patient is back to baseline - Discharge Instructions Instructions: Myocardial Infarction (DC), Chest Pain (DC) Follow Up With: NO,PCP [Primary Care Provider] - Forms: ED Satisfaction Letter - Diet and Activity Activity: increase activity as tolerated, resume usual activities as tolerated Diet: low fat, low cholesterol Hospital course: Mr. Gooden is a 71 year old male who presented to RN and see on 10/24/16 with complaints of chest pain 3 days. He states the pain is crushing in nature, with radiation to his left arm. Patient states that he was also feeling nausea , increased sweating, weakness; however he did not present to the hospital sooner E Nawaf is he thoughts the pain was getting better. On day of admission , he states the pain was worse than before, and was not getting better. He does have a history of coronary artery disease with stent placement in 2005. He takes a daily aspirin, and is supposed to take clopidogrel however he states that he has not been taking his cholesterol for the past several days. He denies any symptoms of shortness of breath, dyspnea, dizziness, association with meals. Patient was evaluated in the emergency department. Vital signs were stable upon presentation, lab results were significant for troponin of 10.32, and an elevated creatinine of 1.3. EKG revealed no ST elevation, normal sinus rhythm. Chest x-ray showed no acute pathology. He was given aspirin, heparin drip, sublingual nitroglycerin with relief of symptoms, and cardiology was consult. Heart score 6. TOLU score 3. Patient was admitted to medicine service for management of NSTMI and AK I. Patient's symptoms improved and he underwent left heart catheterization with placement of 1 drug-eluting stent to the LAD. He also received an transesophageal echocardiogram which showed an ejection fraction of 60% with no significant valvular dysfunction, normal wall motion. Patient was sent home on dual antiplatelet therapy of aspirin and brilinta duration of one year. Patient was instructed to continue his statin at an increased dose of atorvastatin 40 mg daily. A julito was held at this time due to bradycardia in the emergency department, patient was instructed to follow up with cardiology outpatient to determine if the addition is appropriate. Patient remained medically stable throughout admission. His acute kidney injury resolved the next day. Patient is medically stable for discharge, he was instructed to follow-up with primary care physician and employee relations advisor. Significant discussion for general cardiac risk factors including diet, exercise. - Time Spent with Patient Total time spent providing and/or coordinating discharge services: - Constitutional Vitals: Temp Pulse Resp BP Pulse Ox 98.3 F 60 18 118/70 99 10/26/16 08:00 10/26/16 08:00 10/26/16 08:00 10/26/16 08:00 10/26/16 08:00 General appearance: Present: A&O X 3, no acute distress Exam: Gen.: Vitals noted. No acute distress. AAOx3 HEENT: PERRL/EOMI, oropharynx clear, Normocephalic, atraumatic Neck: Supple. No adenopathy. Cardiac: RRR, no murmur, +S1/S2 Pulmonary: CTA bilaterally, no wheezes, rales or rhonchi, equal chest expansion Abdomen: soft, nontender, BS noted, no guarding Back: Nontender throughout. MSK: ROM intact, no joint swelling noted Extremities: no BLE edema, nontender calf, no cyanosis or clubbing Neuro: A&Ox3, moves all extremities, no focal deficits Psych: Appropriate mood and behavior <Ze Grover - Last Filed: 10/26/16 15:33> Date of Encounter: 10/26/16 - Discharge Diagnosis (1) NSTEMI (non-ST elevated myocardial infarction) Priority: Primary Status: Acute (2) CAD (coronary artery disease) Priority: Secondary Status: Acute Qualifiers: Coronary Disease-Associated Artery/Lesion type: [place] artery [place] vs. transplanted heart: [place] heart Associated angina: with unstable angina Qualified Code(s): I25.110 - Atherosclerotic heart disease of [place] coronary artery with unstable angina pectoris (3) Essential (primary) hypertension Status: Acute (4) Chronic back pain Priority: Secondary Status: Chronic Qualifiers: Back pain location: low back pain Back pain laterality: bilateral Sciatica presence: without sciatica Qualified Code(s): M54.5 - Low back pain; G89.29 - Other chronic pain (5) Acute kidney injury Status: Acute Date of admission: 10/24/16 13:03 Primary care physician: PCP NO Consults: 10/25/16 07:57 Consult to Cardiac Rehabilitation-Phase1 [CONS] Routine Comment: Reason for Consult: NSTEMI Call Completed: Yes Hospital course: Mr. Gooden is a 71 year old male - Time Spent with Patient Total time spent providing and/or coordinating discharge services: - Constitutional Vitals: Temp Pulse Resp BP Pulse Ox 98.5 F 68 18 108/76 98 10/26/16 10:39 10/26/16 10:39 10/26/16 10:39 10/26/16 10:39 10/26/16 10:39 - Attending Attestation I examined this patient and my medical decision-making was reviewed with the Resident Physician on 10/26/16. I agree with the documented findings, disposition and treatment plan as described except to the extent set forth below. Mr. Gooden feels OK today. No new issues overnight. No CP. Ready for d/c home. Vitals stable at this time Exam Alert. Comfortable Heart reg No wheeze Plan D/C home today Follow up as outpatient.
--- NOTE | 2016-10-26 09:07 | Cardiology Progress Note ---
Date of Encounter: 10/26/16 Time of Encounter: 08:30 Assessment and Plan (1) NSTEMI (non-ST elevated myocardial infarction) Current Visit: Yes Status: Acute NSTEMI--cardiac rehab consulted. LHC: s/p successful PTCA/ADELITA to ostial LAD; otherwise mild-moderate non- obstructive CAD. TTE: LVEF 60%, no significant valvular dysfunction, normal wall motion, mild LVDD. Uninterrupted DAPT (asa + brilinta) for at least 1 year--pt verbalized understanding. Savings card provided. Continue statin at increased dose. Betablocker held d/t bradycardia, HR mid 50's --consider addition as outpatient if able. Post PCI discharge instructions discussed including site care and medical therapy; pt. verbalizes understanding. All questions and concerns were addressed. Cardiology will sign-off, plan communicated with primary team. Will coordinate outpt appt. Discussion w patient/family: The assessment and plan as outlined above was discussed with the patient and/or family members who expressed understanding and agreement. All questions were answered. Thank you for involving us in the care of your patient. Please call with any questions. The patient was discussed and reviewed with Dr. Nolasco; Cardiology will sign-off , will coordinate outpt appt. Subjective Principal diagnosis: NSTEMI Interval history: Seen and examined. No complaints today upon exam. Denies recurrent chest pain or discomfort--has been up and ambulating in room without symptoms. Right radial cath site stable. Objective Vital Signs, Last 4 Hours Temp Pulse Resp BP Pulse Ox 10/26/16 08:00 98.3 F 60 18 118/70 99 10/26/16 05:10 97.8 F 61 15 136/80 95 General: Conversant, No Apparent Distress HEENT: Atraumatic, Normocephaly, Mucus Membranes Moist Cardiac: Reg Rate and Rhythm, Normal S1 and S2 Lungs: Normal Breath Sounds Neuro: Alert and responsive Abdomen: Soft Skin: No rashes noted on visualized skin Musculoskeletal: No Chest Wall Tenderness Extremities: No Edema, Normal Pulses Other: right radial: dressing clean, dry and intact. no oozing, hematoma or ecchymosis. Brisk cap refill, +2 radial pulses bilaterally. Results 10/26/16 04:51 10/26/16 04:51 Lab Results 10/25/16 10/26/1610/26/17 12:23 04:51 04:51 WBC 5.8 Hgb 12.3 L Hct 37.1 L Plt Count 150 APTT 29.9 D Sodium 143 Potassium 4.0 Chloride 111 H Carbon Dioxide 30 H BUN 16 Creatinine 1.17 Glucose 101 H Calcium 8.9 Active Medications Acetaminophen (Tylenol) 650 mg PO Q6HR PRN PRN Reason: Mild Pain (1-3) Stop: 04/25/17 11:09 Aspirin (Aspirin Ec) 81 mg PO DAILY [facility] Stop: 04/26/17 09:01 Last Admin: 10/26/16 07:50 Dose: 81 mg Atorvastatin Calcium (Lipitor) 40 mg PO HS [facility] Stop: 04/27/17 21:01 Cyanocobalamin (Vitamin B12) 1,000 mcg PO DAILY [facility] Stop: 04/26/17 09:01 Last Admin: 10/26/16 07:49 Dose: 1,000 mcg Hydrocortisone (Cortaid) 1 appl TP BID PRN; Protocol PRN Reason: Allergic Reaction Stop: 04/25/17 14:20 Last Admin: 10/24/16 14:54 Dose: 1 appl Morphine Sulfate (Morphine Sulfate) 2 mg IVP Q4HR PRN PRN Reason: Severe Pain (7-10) Stop: 04/25/17 11:09 Multivitamins/Calcium (Thera M Plus) 1 tab PO DAILY [facility] Stop: 04/26/17 09:01 Last Admin: 10/26/16 07:49 Dose: 1 tab Naloxone HCl (Narcan) 0.4 mg IVP Q2MIN PRN PRN Reason: Opioid Reversal Stop: 04/25/17 11:09 Nitroglycerin (Nitroglycerin) 0.4 mg SL Q5MIN PRN PRN Reason: Chest Pain Stop: 04/25/17 09:28 Last Admin: 10/24/16 09:36 Dose: 0.4 mg Omeprazole (Prilosec) 20 mg PO DAILY@0730 [facility] PRN Reason: Protocol Stop: 04/26/17 08:02 Last Admin: 10/26/16 07:49 Dose: 20 mg Ondansetron HCl (Zofran) 4 mg IVP Q8HR PRN PRN Reason: Nausea And Vomiting Stop: 04/25/17 11:09 Ticagrelor (Brilinta) 90 mg PO BID [facility] Stop: 04/26/17 21:01 Last Admin: 10/26/16 07:50 Dose: 90 mg Vitamin D (Vitamin D) 1,000 unit PO DAILY [facility] Stop: 04/26/17 09:01 Last Admin: 10/26/16 07:50 Dose: 1,000 unit - Imaging and Cardiology Echo: report reviewed Cardiac cath: report reviewed Other Results: 12 hour tele: avg HR=59 SB. No significant pause/event noted. - EKG Interpretation EKG results cardiology: personally reviewed Consult Discharge Plan - Plan Referrals: NO,PCP [Primary Care Provider] - Prescriptions: Atorvastatin Calcium [Lipitor] 40 mg PO DAILY #30 tablet Ticagrelor [Brilinta] 90 mg PO BID #60 tablet
[2016-10-26 10:41] VITALS: BP 108/76
== END 2016-10-26 11:25 | disposition home or self-care (01) | DRG 247 ==
LOC: 2ANU 08:32 → EMEROO 08:32 → 2ANU 11:28
PROVIDERS: ADMIT Internal Medicine; ATTEND Internal Medicine

== ENCOUNTER 2019-06-10 09:23 | Inpatient (IN) ==
[2019-06-10] MEDS ORDERED: Isovue-370 500 ML BOTTLE IVP ONE (09:52)
[2019-06-10] MEDS ORDERED: 0.9 % Sodium Chloride 1,000 ML IVC ONE (09:52)
[2019-06-10] MEDS ORDERED: Clindamycin 600 MG/50 ML 600 MG/50 ML IV.SOLN IVPB ONE (10:00)
[2019-06-10 10:24] LABS: INR 1.2; Prothrombin Time 13.5 Seconds (9.4-12.1)
[2019-06-10 10:28] LABS: Hematocrit 38.9 % (37.5-50.1); Hemoglobin 12.8 g/dL (12.9-16.9); Mean Corpuscular HGB Conc 32.9 g/dL (31.6-35.5); Mean Corpuscular Hemoglobin 31.6 pg (28.0-33.3); Mean Platelet Volume 10.8 fL (9.4-12.4); Platelet Count 161 K/mcL (140-400); Red Blood Count 4.05 M/mcL (4.19-5.50); Red Cell Distribution Width 13.9 % (11.5-14.5); White Blood Count 6.1 K/mcL (4.3-11.1)
[2019-06-10 10:41] LABS: Alanine Aminotransferase 43 Units/L (7-52); Albumin 3.6 g/dL (3.5-5.7); Alkaline Phosphatase 69 Units/L (34-104); Aspartate Amino Transferase 49 Units/L (13-39); BUN/Creatinine Ratio 23 (6-26); Bilirubin,Total 1.1 mg/dL (0.3-1.0); Blood Urea Nitrogen 28 mg/dL (8-23); Calcium 9.3 mg/dL (8.6-10.3); Carbon Dioxide 25 mEq/L (23-29); Chloride 103 mEq/L (98-107); Globulin 3.6 g/dL (2.4-3.5); Glucose 108 mg/dL (70-105); Magnesium 2.6 mg/dL (1.6-2.6); Osmolality,Calculated 296 (280-300); Phosphorous 3.8 mg/dL (2.7-4.5); Potassium 3.9 mEq/L (3.5-5.1); Sodium 140 mEq/L (136-145); Total Protein 7.2 g/dL (6.4-8.9); eGFR For African Americans > 60 (> 60); eGFR For Non-African Americans 59 (> 60)
[2019-06-10 10:42] LABS: Troponin I < 0.03 ng/mL (< 0.04)
[2019-06-10 10:54] LABS: Thyroid Stimulating Hormone 0.989 mcIU/mL (0.340-5.600)
[2019-06-10 10:59] LABS: Bilirubin,Urine Moderate (Negative); Blood,Urine Negative (Negative); Glucose,Urine (UA) Normal (Normal); Ketones,Urine 40 mg/dL (Negative); Leukocyte Esterase,Urine Small (Negative); Nitrite,Urine Negative (Negative); PH,Urine 5.5 pH Units (5.0-8.0); Protein,Urine 30 mg/dL (Neg-Trace); Specific Gravity,Urine > 1.030 (1.010-1.025); Urobilinogen,Urine Normal (Normal)
[2019-06-10 11:07] LABS: Lymphocytes # 2.1 K/mcL (0.6-4.6); Monocytes # 0.5 K/mcL (0.0-1.3); Neutrophils # 3.5 K/mcL (1.6-8.9)
[2019-06-10 11:09] LABS: Hypochromasia Present (Not Present); Platelet Estimate Normal (Normal); Reactive Lymphocytes Present (Not Present)
[2019-06-10 11:16] LABS: Clarity,Urine Slightly Cloudy (Clear); Color,Urine Dark Yellow (Yellow)
[2019-06-10 11:39] LABS: Hyaline Casts,Urine Few per lpf (None-Few); Mucus,Urine Few per lpf (Few); Squamous Epithelial Cell,Urine Few per lpf (None-Few)
[2019-06-10 11:40] LABS: Bacteria,Urine Moderate per hpf (None-Few); RBC,Urine 0-3 per hpf (0-3); WBC,Urine 0-3 per hpf (0-3)
[2019-06-10] MEDS ORDERED: Naloxone 0.4 MG/ML INJ IVP PRN ×2 (12:49→23:10)
[2019-06-10] MEDS ORDERED: Ondansetron 4 MG/2 ML VIAL IVP PRN ×2 (12:49→23:10)
[2019-06-10] MEDS ORDERED: 0.9 % Sodium Chloride 1,000 ML IVC SCH (13:00)
[2019-06-10] MEDS ORDERED: *HR* OxyCODONE Immed Rel 5 MG TABLET PO PRN ×3 (14:13→23:10)
[2019-06-10] MEDS ORDERED: tiZANidine 4 MG TABLET PO PRN ×2 (14:45→23:10)
[2019-06-10] MEDS ORDERED: Clindamycin 600 MG/50 ML 600 MG/50 ML IV.SOLN IVPB SCH (16:00)
[2019-06-10] MEDS ORDERED: Morphine Sulfate 2 MG/ML SYRINGE IVP PRN (17:26)
[2019-06-10] MEDS ORDERED: Ondansetron 4 MG/2 ML VIAL IVP ONE (17:26)
[2019-06-10] MEDS ORDERED: *HR* Heparin 5,000 UNIT/ML VIAL SQ SCH (18:00)
[2019-06-10] MEDS ORDERED: Acetaminophen IV 1,000 MG/100 ML INFUS..BTL ONE (19:19)
[2019-06-10] MEDS ORDERED: Famotidine 20 MG/2 ML VIAL ONE (19:19)
[2019-06-10] MEDS ORDERED: *HR* PHENYLEPHRINE 1,000 MCG/10 ML SYRINGE IVP ONE (20:01)
[2019-06-10] MEDS ORDERED: *HR* Propofol 200 MG/20 ML VIAL IVP ONE (20:01)
[2019-06-10] MEDS ORDERED: *HR* Midazolam HCl 2 MG/2 ML VIAL ONE (20:01)
[2019-06-10] MEDS ORDERED: Lidocaine -MPF 2% 2 ML VIAL ONE (20:01)
[2019-06-10] MEDS ORDERED: Dexamethasone 4 MG/ML VIAL ONE (20:01)
[2019-06-10] MEDS ORDERED: Ondansetron 4 MG/2 ML VIAL ONE (20:01)
[2019-06-10] MEDS ORDERED: *HR* FentaNYL (PF) 100 MCG/2 ML VIAL ONE (20:01)
[2019-06-10] MEDS ORDERED: Gabapentin 300 MG CAPSULE PO SCH (21:00)
[2019-06-10] MEDS ORDERED: Multivit/Ca/Min/Fe/FA 1 TAB TABLET PO SCH (21:00)
[2019-06-10] MEDS ORDERED: Aspirin Enteric Coated 81 MG Tablet PO SCH (21:00)
[2019-06-11] MEDS: 0.9 % Sodium Chloride 1,000 ML IVC SCH ×2 (00:16→15:40)
[2019-06-11] MEDS: Clindamycin 600 MG/50 ML 600 MG/50 ML IV.SOLN IVPB SCH ×3 (00:44→15:59)
[2019-06-11] MEDS: Piperacillin/Tazobactam 3.375 GM in 0.9 % Sodium Chloride Mini Bag 100 ML IVPB SCH ×3 (00:45→16:00)
[2019-06-11] MEDS: *HR* Heparin 5,000 UNIT/ML VIAL SQ SCH ×2 (06:08→18:20)
[2019-06-11] MEDS: Cholecalciferol (D-3) 1,000 UNIT (25MCG) TABLET PO SCH (08:54)
[2019-06-11] MEDS: Cyanocobalamin (B-12) 1,000 MCG TABLET PO SCH (08:55)
[2019-06-11] MEDS ORDERED: Cyanocobalamin (B-12) 1,000 MCG TABLET PO SCH (09:00)
[2019-06-11] MEDS ORDERED: Cholecalciferol (D-3) 1,000 UNIT (25MCG) TABLET PO SCH (09:00)
[2019-06-11 09:30] LABS: Hematocrit 37.1 % (37.5-50.1); Hemoglobin 11.9 g/dL (12.9-16.9); Mean Corpuscular HGB Conc 32.1 g/dL (31.6-35.5); Mean Corpuscular Hemoglobin 31.3 pg (28.0-33.3); Mean Corpuscular Volume 97.6 fL (83.0-100.0); Mean Platelet Volume 10.3 fL (9.4-12.4); Platelet Count 155 K/mcL (140-400); Red Cell Distribution Width 13.7 % (11.5-14.5)
[2019-06-11 09:32] LABS: White Blood Count 9.3 K/mcL (4.3-11.1)
[2019-06-11 09:48] LABS: BUN/Creatinine Ratio 24 (6-26); Blood Urea Nitrogen 22 mg/dL (8-23); Calcium 8.5 mg/dL (8.6-10.3); Carbon Dioxide 25 mEq/L (23-29); Chloride 108 mEq/L (98-107); Glucose 102 mg/dL (70-105); Magnesium 2.6 mg/dL (1.6-2.6); Osmolality,Calculated 292 (280-300); Potassium 4.2 mEq/L (3.5-5.1); Sodium 139 mEq/L (136-145); eGFR For African Americans > 60 (> 60); eGFR For Non-African Americans > 60 (> 60)
[2019-06-11 09:54] LABS: Lymphocytes # 4.3 K/mcL (0.6-4.6); Monocytes # 0.6 K/mcL (0.0-1.3); Neutrophils # 4.5 K/mcL (1.6-8.9); Reactive Lymphocytes Present (Not Present)
[2019-06-11 09:55] LABS: Platelet Clumps Few (Not Present); Platelet Estimate Normal (Normal)
[2019-06-11] MEDS: *HR* OxyCODONE Immed Rel 5 MG TABLET PO PRN ×2 (15:17→23:12)
[2019-06-11] MEDS ORDERED: Multivit/Ca/Min/Fe/FA 1 TAB TABLET PO SCH (21:00)
[2019-06-11] MEDS ORDERED: Gabapentin 300 MG CAPSULE PO SCH (21:00)
[2019-06-11] MEDS ORDERED: Aspirin Enteric Coated 81 MG Tablet PO SCH (21:00)
[2019-06-12] MEDS: Clindamycin 600 MG/50 ML 600 MG/50 ML IV.SOLN IVPB SCH ×2 (00:03→07:51)
[2019-06-12] MEDS: Piperacillin/Tazobactam 3.375 GM in 0.9 % Sodium Chloride Mini Bag 100 ML IVPB SCH ×2 (01:45→07:51)
[2019-06-12] MEDS: *HR* Heparin 5,000 UNIT/ML VIAL SQ SCH (06:02)
[2019-06-12 07:09] VITALS: BP 111/65
[2019-06-12] MEDS: Cyanocobalamin (B-12) 1,000 MCG TABLET PO SCH (07:51)
[2019-06-12] MEDS: Cholecalciferol (D-3) 1,000 UNIT (25MCG) TABLET PO SCH (07:51)
== END 2019-06-12 12:44 | disposition home health service (06) | DRG 603 ==
LOC: 3BNU 09:23 → EMEROOARM 09:23 → SUATTDRO 13:36 → 3BNU 14:15
PROVIDERS: ADMIT Internal Medicine; ATTEND Internal Medicine